=== PATIENT | female | born 1940 | race Hispanic/Latino ===

== ENCOUNTER 2022-01-09 11:05 | Emergency (ER) | payer SELFPAY ==
[~2022-01-09] VITALS: Ht 144.8 cm; Wt 36.3 kg
[2022-01-09] MEDS ORDERED: OMEPRAZOLE20 MG PO (13:37)
== END 2022-01-09 13:48 | disposition home or self-care (01) ==
LOC: ED 11:05
DX: R10.13 Epigastric pain (principal)
CPT/HCPCS: 36415; 74177; 80053; 83690; 85025; 99284-25; Q9967